=== PATIENT | female | born 1935 | race Caucasian/White ===

== ENCOUNTER 2022-12-04 03:49 | Inpatient (IN) | payer MEDICARE ==
[2022-12-04 04:48] VITALS: BMI 30.6
[2022-12-04] MEDS ORDERED: dilTIAZem 125 MG in Sodium Chloride 0.9% 100 ML IVPB SCH (05:00)
[2022-12-04 06:04] LABS: Anion Gap 15 mmol/L (10-20); BUN (Urea Nitrogen) 15 mg/dL (9.8-20.1); Calc. Creatinine Clearance 76 mL/min (70-130); Calcium 8.6 mg/dL (7.8-10.44); Carbon Dioxide 22 mmol/L (23-31); Chloride 98 mmol/L (98-107); Estimated GFR 84; Glucose 125 mg/dL (83-110); Magnesium 2.4 mg/dL (1.6-2.6); Potassium 3.9 mmol/L (3.5-5.1); Sodium 131 mmol/L (136-145)
[2022-12-04] MEDS ORDERED: Carvedilol 25 MG TAB PO SCH (08:00)
[2022-12-04 08:22] LABS: Troponin I 0.048 ng/mL (< 0.028)
[2022-12-04] MEDS ORDERED: Aspirin 325 mg Enteric Coated Tablet PO SCH (09:00)
[2022-12-04] MEDS ORDERED: Losartan Potassium 50 MG TAB PO SCH (09:00)
[2022-12-04] MEDS ORDERED: Hydrochlorothiazide 25 MG TAB PO SCH (09:00)
[2022-12-04] MEDS: Apixaban 5 MG TAB PO SCH ×2 (09:47→20:54)
[2022-12-04] MEDS: Digoxin 0.125 MG TAB PO SCH (09:47)
[2022-12-04] MEDS ORDERED: dilTIAZem 125 MG, Admixture Fee 1 EACH in Sodium Chloride 0.9% 100 ML IVPB SCH (15:15)
[2022-12-04] MEDS ORDERED: dilTIAZem CD 120 MG CAP PO SCH (15:15)
[2022-12-04] MEDS ORDERED: Carvedilol 6.25 MG TAB PO SCH (17:00)
[2022-12-04] MEDS ORDERED: Digoxin 0.5 MG/2 ML AMP SLOW IVP SCH ×2 (18:00→18:15)
[2022-12-04] MEDS: Atorvastatin Calcium 10 MG TAB PO SCH (20:55)
[2022-12-05] MEDS ORDERED: dilTIAZem CD 120 MG CAP PO SCH (09:00)
[2022-12-05] MEDS: dilTIAZem CD 180 MG CAP PO SCH (09:26)
[2022-12-05] MEDS: Apixaban 5 MG TAB PO SCH ×2 (09:26→22:19)
[2022-12-05] MEDS: Digoxin 0.125 MG TAB PO SCH (09:26)
[2022-12-05] MEDS: Atorvastatin Calcium 10 MG TAB PO SCH (22:19)
[2022-12-06] MEDS: Apixaban 5 MG TAB PO SCH ×2 (08:35→20:51)
[2022-12-06] MEDS: Digoxin 0.125 MG TAB PO SCH (08:37)
[2022-12-06] MEDS: dilTIAZem CD 180 MG CAP PO SCH (08:37)
[2022-12-06 09:06] LABS: Anion Gap 10 mmol/L (10-20); BUN (Urea Nitrogen) 13 mg/dL (9.8-20.1); Calc. Creatinine Clearance 79 mL/min (70-130); Calcium 8.9 mg/dL (7.8-10.44); Carbon Dioxide 26 mmol/L (23-31); Chloride 100 mmol/L (98-107); Estimated GFR 85; Glucose 129 mg/dL (83-110); Potassium 4.4 mmol/L (3.5-5.1); Sodium 132 mmol/L (136-145)
[2022-12-06] MEDS ORDERED: dilTIAZem 125 MG in Sodium Chloride 0.9% 100 ML IVPB SCH (11:00)
[2022-12-06] MEDS ORDERED: Midazolam HCl 2 mg/2 ml Vial ONE (13:39)
[2022-12-06] MEDS ORDERED: Glycopyrrolate 0.2 MG/ML 5 ML SYRINGE ONE (13:39)
[2022-12-06] MEDS ORDERED: PROPOFOL 0 ML ONE (13:39)
[2022-12-06] MEDS ORDERED: PHENYLEPHRINE-NS 100 MCG/ML 10 ML SYRINGE ONE (13:39)
[2022-12-06] MEDS ORDERED: Dronedarone HCl 400 MG TAB PO SCH (17:00)
[2022-12-06] MEDS: Atorvastatin Calcium 10 MG TAB PO SCH (20:54)
[2022-12-07 08:30] LABS: Anion Gap 15 mmol/L (10-20); BUN (Urea Nitrogen) 12 mg/dL (9.8-20.1); Calc. Creatinine Clearance 71 mL/min (70-130); Calcium 8.8 mg/dL (7.8-10.44); Carbon Dioxide 23 mmol/L (23-31); Chloride 99 mmol/L (98-107); Estimated GFR 78; Glucose 113 mg/dL (83-110); Sodium 133 mmol/L (136-145)
[2022-12-07] MEDS: Apixaban 5 MG TAB PO SCH (08:44)
[2022-12-07 09:01] VITALS: TEMP 97.7
[2022-12-07 12:35] VITALS: BP 131/61
== END 2022-12-07 14:50 | disposition home or self-care (01) | DRG 310 ==
LOC: CSHTELE 03:49
PROVIDERS: ADMIT Family Medicine; ATTEND Internal Medicine
DX: I48.19 Other persistent atrial fibrillation (principal); I10 Essential (primary) hypertension; E78.5 Hyperlipidemia, unspecified; Z79.82 Long term (current) use of aspirin; Z79.899 Other long term (current) drug therapy; Z98.890 Other specified postprocedural states; Z83.3 Family history of diabetes mellitus; Z80.3 Family history of malignant neoplasm of breast; Z80.49 Family history of malignant neoplasm of other genital organs; Z53.8 Procedure and treatment not carried out for other reasons
CPT/HCPCS: 36415; 71045; 71275; 80048; 80053; 82550; 82553; 83690; 83735; 83880; 84443; 84484; 85025; 85379; 93005; 93010; 93306; 96365; 96366; 96367; 96372; 96375; J1160; J1650; J2250; J2704; J3475; J3490; Q9967

== ENCOUNTER 2023-04-18 18:00 | Emergency (ER) | payer MEDICARE ==
[~2023-04-18 18:00] MED LIST: Iopamidol 370 76% 100 ML VIAL ONE
[2023-04-18 19:03] LABS: #Eosinphils 0.2 10x3/uL (0.0-0.5); #Monocytes 0.5 10x3/uL (0.0-1.1); #Neutrophils 3.5 10x3/uL (1.5-8.4); %Basophils 0.5 % (0.0-2.0); %Eosinophils 3.6 % (0.0-6.0); %Lymphocytes 25.6 % (18.0-47.0); %Neutrophils 61.1 % (40.0-75.0); Hematocrit 36.7 % (34.9-44.5); Hemoglobin 12.2 g/dL (12.0-15.5); Mean Corpuscular HGB CONC 33.2 g/dL (32.0-36.0); Mean Corpuscular Hemoglobin 30.3 pg (27.0-33.0); Mean Corpuscular Volume 91.1 fl (81.6-98.3); Mean Platelet Volume 10.9 fl (7.4-10.4); Platelet Count 168 10x3/uL (150-450); RBC Distribution Width 13.1 % (11.5-14.5); Red Blood Cell (RBC) Count 4.03 10x6/uL (3.90-5.03); White Blood Cell (WBC) Count 5.8 10x3/uL (3.5-10.5)
[2023-04-18 19:07] LABS: PTT 27.6 sec (22.0-33.0); Prothrombin Time 11.1 sec (9.5-12.1)
[2023-04-18 19:10] LABS: ALT (SGPT) 14 U/L (8-55); AST (SGOT) 19 U/L (5-34); Albumin 4.3 g/dL (3.4-4.8); Alkaline Phosphatase 43 U/L (40-110); Anion Gap 13 mmol/L (10-20); BUN (Urea Nitrogen) 14 mg/dL (9.8-20.1); Bilirubin, Total 0.7 mg/dL (0.2-1.2); Calc. Creatinine Clearance 0 mL/min (70-130); Calcium 9.1 mg/dL (7.8-10.44); Carbon Dioxide 25 mmol/L (23-31); Chloride 103 mmol/L (98-107); Estimated GFR 78; Globulin 3.1 g/dL (2.4-3.5); Glucose 126 mg/dL (83-110); Potassium 4.1 mmol/L (3.5-5.1); Protein, Total 7.4 g/dL (5.8-8.1); Sodium 137 mmol/L (136-145)
[2023-04-18 19:16] LABS: Troponin I 0.012 ng/mL (< 0.028)
== END 2023-04-18 21:24 | disposition home or self-care (01) ==
LOC: CSHERS 18:00
DX: R47.01 Aphasia (principal); I10 Essential (primary) hypertension; I48.91 Unspecified atrial fibrillation
CPT/HCPCS: 36415; 70450; 70496; 70498; 71045; 80053; 84484; 85025; 85610; 85730; 93005; Q9967

== ENCOUNTER 2023-09-27 14:48 | Observation (INO) | payer MEDICARE ==
[2023-09-27 15:31] LABS: #Basophils 0.03 10x3/uL (0.0-0.2); #Eosinphils 0.09 10x3/uL (0.0-0.5); #Neutrophils 3.58 10x3/uL (1.5-8.4); %Basophils 0.6 % (0.0-2.0); %Eosinophils 1.8 % (0.0-6.0); %Lymphocytes 20.4 % (18.0-47.0); %Monocytes 5.9 % (0.0-10.0); %Neutrophils 70.9 % (40.0-75.0); Hemoglobin 11.5 g/dL (12.0-15.5); Mean Corpuscular HGB CONC 33.8 g/dL (32.0-36.0); Mean Corpuscular Hemoglobin 31.1 pg (27.0-33.0); Mean Corpuscular Volume 91.9 fl (81.6-98.3); Mean Platelet Volume 11.2 fl (7.4-10.4); Platelet Count 150 10x3/uL (150-450); RBC Distribution Width 13.3 % (11.5-14.5); White Blood Cell (WBC) Count 5.1 10x3/uL (3.5-10.5)
[2023-09-27 15:43] LABS: ALT (SGPT) 183 U/L (8-55); AST (SGOT) 153 U/L (5-34); Albumin 3.9 g/dL (3.4-4.8); Alkaline Phosphatase 61 U/L (40-110); Anion Gap 14 mmol/L (10-20); BUN (Urea Nitrogen) 14 mg/dL (9.8-20.1); Bilirubin, Total 0.8 mg/dL (0.2-1.2); Calc. Creatinine Clearance 0 mL/min (70-130); Calcium 8.7 mg/dL (7.8-10.44); Carbon Dioxide 23 mmol/L (23-31); Chloride 104 mmol/L (98-107); Estimated GFR 74; Globulin 3.1 g/dL (2.4-3.5); Glucose 123 mg/dL (83-110); Potassium 4.6 mmol/L (3.5-5.1); Sodium 136 mmol/L (136-145)
[2023-09-27 15:49] LABS: Troponin I 0.024 ng/mL (< 0.028)
[2023-09-27 19:09] VITALS: BMI 29.9
[2023-09-27] MEDS ORDERED: Senokot S 8.6-50 MG TAB PO PRN (21:02)
[2023-09-27] MEDS ORDERED: Ondansetron PF 4 MG/2 ML Vial IVP PRN (21:02)
[2023-09-27] MEDS ORDERED: Ondansetron ODT 4 MG TAB PO PRN (21:02)
[2023-09-27] MEDS ORDERED: Acetaminophen 325 MG TAB PO PRN (21:02)
[2023-09-27] MEDS ORDERED: Bisacodyl 5 MG TAB PO PRN (21:02)
[2023-09-27] MEDS: Carvedilol 12.5 MG TAB PO SCH (23:10)
[2023-09-27] MEDS: Apixaban 5 MG TAB PO SCH (23:10)
[2023-09-27] MEDS: Atorvastatin Calcium 10 MG TAB PO SCH (23:10)
[2023-09-28 06:04] LABS: #Basophils 0.02 10x3/uL (0.0-0.2); #Eosinphils 0.17 10x3/uL (0.0-0.5); #Monocytes 0.43 10x3/uL (0.0-1.1); #Neutrophils 3.22 10x3/uL (1.5-8.4); %Basophils 0.4 % (0.0-2.0); %Eosinophils 3.3 % (0.0-6.0); %Lymphocytes 25.2 % (18.0-47.0); %Monocytes 8.3 % (0.0-10.0); %Neutrophils 62.4 % (40.0-75.0); Hematocrit 30.2 % (34.9-44.5); Hemoglobin 10.4 g/dL (12.0-15.5); Mean Corpuscular HGB CONC 34.4 g/dL (32.0-36.0); Mean Corpuscular Hemoglobin 31.5 pg (27.0-33.0); Mean Corpuscular Volume 91.5 fl (81.6-98.3); Mean Platelet Volume 11.1 fl (7.4-10.4); Platelet Count 154 10x3/uL (150-450); RBC Distribution Width 13.2 % (11.5-14.5); White Blood Cell (WBC) Count 5.2 10x3/uL (3.5-10.5)
[2023-09-28 06:13] LABS: ALT (SGPT) 145 U/L (8-55); AST (SGOT) 83 U/L (5-34); Albumin 3.3 g/dL (3.4-4.8); Alkaline Phosphatase 49 U/L (40-110); Anion Gap 12 mmol/L (10-20); BUN (Urea Nitrogen) 12 mg/dL (9.8-20.1); Bilirubin, Direct 0.3 mg/dL (0.1-0.3); Bilirubin, Total 0.8 mg/dL (0.2-1.2); Calc. Creatinine Clearance 68 mL/min (70-130); Calcium 8.5 mg/dL (7.8-10.44); Carbon Dioxide 23 mmol/L (23-31); Chloride 104 mmol/L (98-107); Estimated GFR 78; Glucose 110 mg/dL (83-110); Magnesium 1.9 mg/dL (1.6-2.6); Potassium 4.1 mmol/L (3.5-5.1); Protein, Total 6.2 g/dL (5.8-8.1); Sodium 135 mmol/L (136-145)
[2023-09-28 10:09] LABS: Bilirubin Neg (Negative); Blood, Urine Negative (Negative); Clarity Clear (Clear); Glucose, Urine (Dipstick) Normal (Negative); Ketone, Urine Negative (Negative); Leukocyte 25 (Negative); Nitrite Negative (Negative); Protein, Urine (Dipstick) Negative (Neg-Trace); Urobilinogen Normal mg/dL (Less than 2); pH, Urine 6.5 (5.0-9.0)
[2023-09-28 11:01] VITALS: TEMP 98.5
[2023-09-28] MEDS: Carvedilol 12.5 MG TAB PO SCH (11:04)
[2023-09-28] MEDS: Losartan 50 MG TAB PO SCH (11:04)
[2023-09-28] MEDS: Apixaban 5 MG TAB PO SCH (11:05)
[2023-09-28 12:30] LABS: Bacteria/HPF 2+ HPF (None Seen); CAUTI Indications for Culture Alt mental st,lethar; RBC/HPF 0-3 HPF (0-3); Squamous Epithelial 0-3 HPF (0-3); Urine Culture Reflex No No
[2023-09-28 13:06] VITALS: BP 149/59
[2023-09-28] MEDS ORDERED: Atorvastatin Calcium 10 MG TAB PO SCH (21:00)
== END 2023-09-28 12:45 | disposition home or self-care (01) ==
LOC: CSHERS 14:48 → CSHTELE 16:46
PROVIDERS: ADMIT Internal Medicine; ATTEND Internal Medicine
PROC: B246YZZ Ultrasonography of Right and Left Heart using Other Contrast (ICD-10-PCS; principal; 2023-09-27)
DX: I95.9 Hypotension, unspecified (principal); R55 Syncope and collapse; R00.1 Bradycardia, unspecified; R53.1 Weakness; E66.9 Obesity, unspecified; I48.91 Unspecified atrial fibrillation; I12.9 Hypertensive chronic kidney disease with stage 1 through stage 4 chronic kidney disease, or unspecified chronic kidney disease; N18.2 Chronic kidney disease, stage 2 (mild); D63.1 Anemia in chronic kidney disease; Z79.01 Long term (current) use of anticoagulants; Z98.890 Other specified postprocedural states; Z79.899 Other long term (current) drug therapy; Z68.30 Body mass index [BMI] 30.0-30.9, adult
CPT/HCPCS: 36416; 71045; 80048; 80053; 80076; 81001; 83735; 83880; 84443; 84484; 85025; 93005; 93306; G0378

== ENCOUNTER 2024-04-13 20:36 | Emergency (ER) | payer MEDICARE ==
[2024-04-13 21:27] LABS: #Basophils 0.03 10x3/uL (0.0-0.2); #Eosinophils 0.14 10x3/uL (0.0-0.5); #Monocytes 0.44 10x3/uL (0.0-1.1); #Neutrophils 3.03 10x3/uL (1.5-8.4); %Basophils 0.6 % (0.0-2.0); %Eosinophils 2.7 % (0.0-6.0); %Monocytes 8.6 % (0.0-10.0); %Neutrophils 58.9 % (40.0-75.0); Hematocrit 34.4 % (34.9-44.5); Hemoglobin 11.9 g/dL (12.0-15.5); Mean Corpuscular HGB CONC 34.6 g/dL (32.0-36.0); Mean Corpuscular Hemoglobin 31.5 pg (27.0-33.0); Mean Platelet Volume 10.6 fL (7.4-10.4); Platelet Count 168 10x3/uL (150-450); RBC Distribution Width 12.8 % (11.5-14.5); Red Blood Cell (RBC) Count 3.78 10x6/uL (3.90-5.03); White Blood Cell (WBC) Count 5.1 10x3/uL (3.5-10.5)
[2024-04-13 21:39] LABS: ALT (SGPT) 15 U/L (8-55); AST (SGOT) 19 U/L (5-34); Alkaline Phosphatase 43 U/L (40-110); Anion Gap 12 mmol/L (10-20); BUN (Urea Nitrogen) 12 mg/dL (9.8-20.1); Bilirubin, Total 0.4 mg/dL (0.2-1.2); Calc. Creatinine Clearance 0 mL/min (70-130); Calcium 9.5 mg/dL (7.8-10.44); Carbon Dioxide 24 mmol/L (23-31); Chloride 102 mmol/L (98-107); Estimated GFR 73; Glucose 141 mg/dL (83-110); Potassium 4.1 mmol/L (3.5-5.1); Sodium 134 mmol/L (136-145)
[2024-04-13 21:43] LABS: Troponin I 0.013 ng/mL (< 0.028)
== END 2024-04-13 22:38 | disposition home or self-care (01) ==
LOC: CSHERS 20:36
DX: R00.2 Palpitations (principal); I48.91 Unspecified atrial fibrillation; R54 Age-related physical debility; I10 Essential (primary) hypertension; E78.00 Pure hypercholesterolemia, unspecified; Z79.01 Long term (current) use of anticoagulants; Z79.899 Other long term (current) drug therapy
CPT/HCPCS: 36415; 71045; 80053; 84484; 85025; 93005